=== PATIENT | female | born 1990 | race Caucasian/White ===

== ENCOUNTER 2020-04-07 13:55 | Outpatient (REF) | payer OTHER, SELFPAY | END 2020-04-07 13:56 | disposition home or self-care (01) | LOC: HO.LAB 13:55 | PROVIDERS: Visit Provider Internal Medicine | DX: Z20.828 Contact with and (suspected) exposure to other viral communicable diseases (principal) | CPT/HCPCS: C9803; U0003 ==

== ENCOUNTER 2022-01-15 11:07 | Outpatient (REF) | payer OTHER, SELFPAY ==
--- NOTE | ~2022-01-15 | XR_ITS ---
EXAMINATION: XR CHEST CLINICAL INFORMATION: Morbid obesity COMPARISON: None TECHNIQUE: 2 views of the chest were obtained. FINDINGS: No significant abnormality is noted involving the heart, lungs, mediastinum, bony thorax or soft tissues. XR/XR chest 2V IMPRESSION: No acute disease.
--- NOTE | 2022-01-15 11:14 | ECG_ITS ---
Test Reason : E66.01 Blood Pressure : / mmHG Vent. Rate : 095 BPM Atrial Rate : 095 BPM P-R Int : 142 ms QRS Dur : 078 ms QT Int : 348 ms P-R-T Axes : 063 017 032 degrees QTc Int : 437 ms Normal sinus rhythm with sinus arrhythmia Normal ECG No previous ECGs available Referred By: Jayla Snyder Electronically Signed By:ENRIQUE PHILLIPS
[2022-01-15 12:16] LABS: Basophils Percent Auto 0.5 % (0-2); Eosinophils Absolute Auto 0.1 X10*3/uL (0.0-0.4); Eosinophils Percent Auto 1.4 % (0-4); Hematocrit 40.5 % (37.0-47.0); Hemoglobin 13.6 g/dl (12.0-16.0); Imm Gran Abs Auto 0.04 X10*3/uL (0.00-0.03); Imm Gran Pct Auto 0.5 % (0.0-0.4); Lymphocytes Absolute Auto 2.4 X10*3/uL (1.2-4.9); Lymphocytes Percent Auto 27.6 % (20-40); MANUAL DIFF FLAG NO; Mean Corpuscular HGB Conc 33.6 g/dl (31.0-35.0); Mean Corpuscular Hemoglobin 30.5 pg (27.0-33.0); Mean Corpuscular Volume 90.8 fL (80.0-98.0); Mean Platelet Volume 10.4 fL (9.4-12.3); Monocytes Absolute Auto 0.7 X10*3/uL (0.1-1.2); Monocytes Percent Auto 7.5 % (2-11); Neutrophils Absolute Auto 5.5 x10*3/uL (2.0-8.3); Neutrophils Percent Auto 62.5 % (45-73); Platelet Count 229 X10*3/uL (160-400); Red Blood Count 4.46 X10*6/uL (4.20-5.50); Red Cell Distribution Width 12.6 % (11.0-16.0); White Blood Count 8.7 X10*3/uL (4.8-10.8)
[2022-01-15 12:24] LABS: Estimated Average Glucose 105 mg/dL; Hemoglobin A1c % 5.3 %
[2022-01-15 13:00] LABS: Alanine Aminotransferase 20 U/L (0-31); Albumin Level 4.1 g/dL (3.5-5.0); Alkaline Phosphatase 61 U/L (39-117); Anion Gap 15 (12-20); Aspartate Amino Transferase 12 U/L (5-31); Bilirubin Total 0.6 mg/dL (0.0-1.0); Blood Urea Nitrogen 14 mg/dL (9-16); C Reactive Protein 0.31 mg/dL (< or = 0.50); Calcium 9.3 mg/dL (8.4-10.2); Carbon Dioxide 24 mmol/L (22-29); Chloride 104 mmol/L (96-108); Cholesterol 187 mg/dL; Estimated Glomerular Filt Rate > 60; Glucose Random 104 mg/dL (60-115); HDL Cholesterol 44 mg/dL; Iron 150 mcg/dL (30-160); LDL Cholesterol Calculated 88 mg/dl; Percent Iron Saturation 41 % (15-50); Potassium 4.1 mmol/L (3.3-5.1); Sodium 139 mmol/L (135-145); Total Iron Binding Capacity 368 mcg/dL (228-428); Total Protein 6.5 g/dL (6.5-8.0); Triglycerides 275 mg/dL; Unsaturated Iron Binding 218 ug/dL
[2022-01-15 13:09] LABS: Ferritin 98 ng/mL (10-122); Insulin 16 uU/mL (2-29); TSH reflex Free T4 2.31 uIU/mL (0.32-4.0); Vitamin D 25-OH Total 13.1 ng/mL (>30)
[2022-01-15 13:44] LABS: Folate 7.1 ng/mL (> or = 4.0); Vitamin B12 207 pg/mL (200-900)
[2022-01-16 11:46] LABS: Calcium (PTHI) 9.1 mg/dL (8.6-10.2); PTHI 61 pg/mL (16-77)
[2022-01-18 16:17] LABS: Zinc 63 mcg/dL (60-130)
== END 2022-01-15 11:08 | disposition home or self-care (01) ==
LOC: HO.LAB 11:07
PROVIDERS: Visit Provider Physician Assistant
DX: Z01.818 Encounter for other preprocedural examination (principal); E66.01 Morbid (severe) obesity due to excess calories
CPT/HCPCS: 36415; 71046; 80053; 80061; 82306; 82607; 82728; 82746; 83036; 83525; 83540; 83970; 84425; 84443; 84590; 84630; 85025; 86140; 93005

== ENCOUNTER → 2022-01-16 10:30 | Outpatient (BNVA) | payer OTHER, SELFPAY | PROVIDERS: Referring Provider Physician Assistant; Visit Provider Counselor Mental Health | DX: E66.01 Morbid (severe) obesity due to excess calories (principal); Z68.43 Body mass index [BMI] 50.0-59.9, adult; F43.23 Adjustment disorder with mixed anxiety and depressed mood | CPT/HCPCS: 90791; 99211; 99212 ==

== ENCOUNTER 2022-01-16 17:54 | Outpatient (REF) | payer OTHER, SELFPAY ==
[2022-01-17 15:58] LABS: H Pylori Breath Test Negative (Negative)
== END 2022-01-16 17:55 | disposition home or self-care (01) ==
LOC: HO.LNP 17:54
PROVIDERS: Visit Provider Physician Assistant
DX: Z01.818 Encounter for other preprocedural examination (principal); E66.01 Morbid (severe) obesity due to excess calories
CPT/HCPCS: 83013

== ENCOUNTER → 2022-01-17 09:24 | Outpatient (BNVA) | payer OTHER, SELFPAY | PROVIDERS: Referring Provider Physician Assistant; Visit Provider Dietitian, Registered | DX: E66.01 Morbid (severe) obesity due to excess calories (principal); Z71.3 Dietary counseling and surveillance | CPT/HCPCS: 97802 ==

== ENCOUNTER 2022-12-09 13:24 | Outpatient (AMB) | payer OTHER, SELFPAY ==
--- NOTE | 2022-12-09 13:27 | A.OFFVIS_ITS ---
Intake VS Expanded 12/09/22 13:50 Height 5 ft 3 in Weight 303 lb BMI 53.7 BP 139/98 H Blood Pressure Location Rt brachial Blood Pressure Position Sitting Pulse 81 Pulse Source Pulse Oximeter Temp 97.7 F Temperature Source Tympanic Pulse Oximetry 96 Oxygen Delivery Method Room Air Body Fat 150.8 Body Fat Percentage 49.8 Free Fat Mass 152.2 Muscle Mass 144.4 Visceral Mass 17.0 Water Mass 109.2 BMR 2,217 Intake Visit Reasons: (OV) Gastric Balloon Allergies No Known Allergies [No Known Allergies*] Allergy (Verified 01/16/22 15:48) HPI HPI Comments History of Present Illness Details This is a 31 year old woman who is here to start SWL program with SWL classes. Her goal is not to be overweight anymore. She reports first being concerned about her weight 4 years ago and then gave . . She has tried multiple methods of weight loss including multiple diets without permanent results. She lives with [facility] and 2 children ages 10 and 2. She works 5 days per week at home. She wakes at: 6:30 am bed at 1-2 am. Gets into bed a few hours earlier and on her phone or watches television Breakfast: 8:30 am - frozen breakfast sandwich or parfait yogurt. Coffee with black with 4 splenda. Lunch: 1:30 pm - brings leftovers or frozen dinner. water Dinner: 7- 8pm - 2 pork chops, rice and vegetable, 1 plate. water After dinner: string cheese, popsicle a few chips - 1 snack Other snacks: on weekends will snack, salty more than sweet. Liquids: no soda, some fruit juice no sweetened drinks. Alcohol intake: 3d/ week, drinks rum with soda or beer up to 5 drinks. tobacco: 2 cigarettes per day. marijuana: none Exercise: none, no gym membership, treadmill at home. Last mammogram: never, too young Last pap smear: yes, next one soon control method: Mirena IUD VIVIENNE:3 ESS:9 GERD: 4: QOL:91 The patient had entered the surgical weight loss program a year ago, dropped out due to conflicts with family and work. She originally contacted the office requesting Orbera balloon, but given her ongoing smoking and research, she realized that this was not advisable and is interested in nicotine cessation. She is continuing to use Mirena for control and is not interested in having more children at this point. Past surgical history includes . She notes that she is at the heaviest of her adult life at 303 lbs/BMI 53.7. The patient understands that she will need to repeat previously done labs and studies and has requested a virtual/telehealth whenever possible. [facility] Medical History Encounter for insertion of mirena IUD Surgical History H/O section Social History Alcohol intake: current Alcohol intake frequency: a few times a week Tobacco use type: Cigarette Cigarettes Per Day: 2 Review of Systems Const All systems reviewed & are unremarkable except as noted in HPI and below Reports as per HPI Physical Exam Vital Signs: Last Vital Signs Temp 97.7 F 12/09/22 13:50 Pulse 81 12/09/22 13:50 BP 139/98 H 12/09/22 13:50 Pulse Ox 96 12/09/22 13:50 Oxygen Delivery Method Room Air 12/09/22 13:50 BMI result Body Mass Index 53.7 Results Reviewed Results Reviewed: See orders Assessment & Plan Assessment & Plan (1) Morbid obesity: Code(s): E66.01 - Morbid (severe) obesity due to excess calories (2) Asthma: Code(s): J45.909 - Unspecified asthma, uncomplicated (3) Adjustment reaction with anxiety and depression: Code(s): F43.23 - Adjustment disorder with mixed anxiety and depressed mood Plan Using a teaching electric welder helper, I reviewed options including Orbera gastric balloon, laparoscopic sleeve gastrectomy and gastric bypass. The option of a 2nd opinion was also discussed but declined. The option of medical management was reviewed but declined. The patient is interested in a laparoscopic sleeve gastrectomy, possible hiatal hernia repair, possible ventral hernia repair and intraoperative endoscopy. The inherent need for appropriate diet, increased activity/exercise to optimize surgical weight loss and need for nicotine cessation was reviewed and apparently understood. I reviewed the inherent risks of this procedure which include, but are not limited to: Bleeding that could require another operation or blood transfusion; the inherent risks of transfusion reaction infectious disease from blood transfusions; the risk of staple line leaks that could cause sepsis, multi- system organ failure and ; the risk of mesenteric or deep vein thrombosis of the lower extremities that could cause a fatal pulmonary embolism was reviewed; the risk of GERD that could require conversion to gastric bypass was discussed; the risk of recurrent hiatal hernia, especially in the setting of weight regain was reviewed. The risk of weight regain if maladaptive eating and sedentary behavior continue was discussed. The importance of proper diet and increased activity to augment surgical weight loss and the fact that no operation would result in weight loss of poor dietary decisions and sedentary behavior are resumed were discussed at length and apparently understood. The patient had the option of having a high school mathematics teacher present and declined this option. Handouts on lean protein and diet were provided. The patient has requested a follow-up in 1 month which can be a tele visit, see orders. Will arrange an intake visit with Ramsey Blair PA-C regarding diet and exercise. 1. Adequate sleep of 7-8 hours per night discussed 2. Healthy meal plan - stop skipping meals and stop all sweetened drinks All meals/MR's need to take 20 minutes to complete ? ? 8 am - 30 gram shake ? ? 11 am - 30 gram shake ? ? 3:30 pm- bar or yogurt ?? 7pm- dinner of 6 oz lean protein, 8 oz vegetable, 1 serving fruit Exercise - Cardio 4 d week = treadmill at speed 3.0, incline 2-5 - to burn 250 calories 3 d/ wk - Walk at home - 30 minutes Can use [employer] to track calories burned or phone diana. We discussed that patient will need to stop smoking cigarettes now and will need to start decreasing her alcohol intake to 1 drink 3d/ week, stop sweetened mixers. The importance of avoiding and breast feeding for at least 18 months after bariatric surgery was discussed in the information session and was reinforced today.? ? Pt will use body composition analyzer (recommended list given to patient) and weight herself weekly Orders: Orders Vitamin B12 and Folate Today E66.01 - Morbid (severe) obesity due to excess calories, F43.23 - Adjustment disorder with mixed anxiety and depressed mood, J45.909 - Unspecified asthma, uncomplicated Comprehensive Met. Panel Today E66.01 - Morbid (severe) obesity due to excess calories, F43.23 - Adjustment disorder with mixed anxiety and depressed mood, J45.909 - Unspecified asthma, uncomplicated C Reactive Protein Today E66.01 - Morbid (severe) obesity due to excess calories, F43.23 - Adjustment disorder with mixed anxiety and depressed mood, J45.909 - Unspecified asthma, uncomplicated Ferritin Today E66.01 - Morbid (severe) obesity due to excess calories, F43.23 - Adjustment disorder with mixed anxiety and depressed mood, J45.909 - Unspecified asthma, uncomplicated Hemoglobin A1c Today E66.01 - Morbid (severe) obesity due to excess calories, F43.23 - Adjustment disorder with mixed anxiety and depressed mood, J45.909 - Unspecified asthma, uncomplicated Insulin Today E66.01 - Morbid (severe) obesity due to excess calories, F43.23 - Adjustment disorder with mixed anxiety and depressed mood, J45.909 - Unspecified asthma, uncomplicated IRON PROFILE Today E66.01 - Morbid (severe) obesity due to excess calories, F43.23 - Adjustment disorder with mixed anxiety and depressed mood, J45.909 - Unspecified asthma, uncomplicated Lipid Panel Today E66.01 - Morbid (severe) obesity due to excess calories, F43.23 - Adjustment disorder with mixed anxiety and depressed mood, J45.909 - Unspecified asthma, uncomplicated PTHI Today E66.01 - Morbid (severe) obesity due to excess calories, F43.23 - Adjustment disorder with mixed anxiety and depressed mood, J45.909 - Unspecified asthma, uncomplicated TSH reflex Free T4 Today E66.01 - Morbid (severe) obesity due to excess calories, F43.23 - Adjustment disorder with mixed anxiety and depressed mood, J45.909 - Unspecified asthma, uncomplicated Vitamin A Today E66.01 - Morbid (severe) obesity due to excess calories, F43.23 - Adjustment disorder with mixed anxiety and depressed mood, J45.909 - Unspecified asthma, uncomplicated Vitamin B1 Today E66.01 - Morbid (severe) obesity due to excess calories, F43.23 - Adjustment disorder with mixed anxiety and depressed mood, J45.909 - Unspe cified asthma, uncomplicated Vitamin D 25-OH Total Today E66.01 - Morbid (severe) obesity due to excess calories, F43.23 - Adjustment disorder with mixed anxiety and depressed mood, J45.909 - Unspecified asthma, uncomplicated Zinc Today E66.01 - Morbid (severe) obesity due to excess calories, F43.23 - Adjustment disorder with mixed anxiety and depressed mood, J45.909 - Unspecified asthma, uncomplicated ECG 12 lead EKG Today E66.01 - Morbid (severe) obesity due to excess calories, F43.23 - Adjustment disorder with mixed anxiety and depressed mood, J45.909 - Unspecified asthma, uncomplicated FL upper GI w air Today E66.01 - Morbid (severe) obesity due to excess calories, F43.23 - Adjustment disorder with mixed anxiety and depressed mood, J45.909 - Unspecified asthma, uncomplicated Complete Blood Count Auto Diff Today E66.01 - Morbid (severe) obesity due to excess calories, F43.23 - Adjustment disorder with mixed anxiety and depressed mood, J45.909 - Unspecified asthma, uncomplicated H Pylori Breath Test Today E66.01 - Morbid (severe) obesity due to excess calories, F43.23 - Adjustment disorder with mixed anxiety and depressed mood, J45.909 - Unspecified asthma, uncomplicated US abdomen comp w elastography Today E66.01 - Morbid (severe) obesity due to excess calories, F43.23 - Adjustment disorder with mixed anxiety and depressed mood, J45.909 - Unspecified asthma, uncomplicated XR chest 2V Today E66.01 - Morbid (severe) obesity due to excess calories, F43.23 - Adjustment disorder with mixed anxiety and depressed mood, J45.909 - Unspecified asthma, uncomplicated Referrals Behavioral Health Referral E66.01 - Morbid (severe) obesity due to excess calories, F43.23 - Adjustment disorder with mixed anxiety and depressed mood, J45.909 - Unspecified asthma, uncomplicated Nutrition/Dietitian Referral E66.01 - Morbid (severe) obesity due to excess calories, F43.23 - Adjustment disorder with mixed anxiety and depressed mood, J45.909 - Unspecified asthma, uncomplicated Coding Level of Care Code Est Pt Level 4 (72306) Diagnoses Morbid obesity E66.01 Asthma J45.909 Adjustment reaction with anxiety and depression F43.23
[2022-12-09 13:50] VITALS: BP 139/98; PULSE 81; TEMP 36.5; O2SAT 96; BMI 53.7
== END 2022-12-09 14:30 | disposition home or self-care (01) ==
PROVIDERS: Visit Provider Surgery
DX: E66.01 Morbid (severe) obesity due to excess calories (principal); Z68.43 Body mass index [BMI] 50.0-59.9, adult; J45.909 Unspecified asthma, uncomplicated; F43.23 Adjustment disorder with mixed anxiety and depressed mood
CPT/HCPCS: 99214

== ENCOUNTER → 2022-12-09 13:24 | Outpatient (BNVA) | payer OTHER, SELFPAY | PROVIDERS: Visit Provider Surgery | DX: E66.01 Morbid (severe) obesity due to excess calories (principal); J45.909 Unspecified asthma, uncomplicated; F43.23 Adjustment disorder with mixed anxiety and depressed mood; Z68.43 Body mass index [BMI] 50.0-59.9, adult | CPT/HCPCS: 99212 ==

== ENCOUNTER 2022-12-23 14:22 | Outpatient (AMB) | payer OTHER, SELFPAY ==
--- NOTE | 2022-12-23 14:12 | A.OFFVIS_ITS ---
Intake Intake Visit Reasons: VIDEO Initial Nutrition Allergies No Known Allergies [No Known Allergies*] Allergy (Verified 01/16/22 15:48) HPI Nutrition Presentation Details Left the program in 2021 due to not feeling heard and felt the communication was poor. Reason for consult elevated BMI Diet Assmnt Details Pt reports she doesn't really like her nutrition plan. 8am Premier protein premade ([employer] version) 11am same shake 2pm - pt feels hungry here and feels that she needs something savory added. 3pm mozambican yogurt Exercise: 4x per week for 30 minutes treadmill. has a very sedentary job at home. SWL online classes: none, she took the first 4 last year During the time period she was not in the program, did not go back to old habits. Dietary counseling reduction Diagnosis Nutrition problem #1 overweight/obesity As related to (etiology) #1 excess energy intake and physical inactivity As evidenced by (sign/symptom) #1 high BMI Monitoring/Goals Nutrition problem monitoring total energy intake, level of knowledge/skill, total PRO intake, total CHO intake and weight Outcome progress progressing Learning/Education Readiness to learn good Stages of change action Educational materials provided Yes Most Recent Diabetes Results: Cholesterol 187 mg/dL 01/15/22 HDL Cholesterol 44 mg/dL 01/15/22 Triglycerides 275 mg/dL 01/15/22 Creatinine 0.73 mg/dL (0.5-1.4) 01/15/22 Blood Urea Nitrogen 14 mg/dL (9-16) 01/15/22 Sodium 139 mmol/L (135-145) 01/15/22 Potassium 4.1 mmol/L (3.3-5.1) 01/15/22 Chloride 104 mmol/L (96-108) 01/15/22 Carbon Dioxide 24 mmol/L (22-29) 01/15/22 Calcium 9.3 mg/dL (8.4-10.2) 01/15/22 AST 12 U/L (5-31) 01/15/22 ALT 20 U/L (0-31) 01/15/22 Total Protein 6.5 g/dL (6.5-8.0) 01/15/22 Albumin 4.1 g/dL (3.5-5.0) 01/15/22 [facility] Medical History Encounter for insertion of mirena IUD Surgical History H/O section Social History Alcohol intake: current Alcohol intake frequency: a few times a week Tobacco use type: Cigarette Cigarettes Per Day: 2 Assessment & Plan Assessment & Plan (1) Morbid obesity: Code(s): E66.01 - Morbid (severe) obesity due to excess calories Patient Instructions: Gave snack option if needed. otherwise, she is content enough to continue her nutrition plan as is. recommended going for a walk on her 30 minute lunch break as well since she is sitting all day. also sent information to log into online classes which she will complete by next RD appt 01/28 1:30pm Telehealth Telehealth Location of provider rendering services: practice address Location of patient: address on file Patient Identification confirmed using: Name, : Yes Telehealth method: video Patient verbally consented to treatment: Yes Patient verbally consented to billing insurance company: Yes Patient informed of any privacy concerns related to visit: Yes Minutes spent on Phone/Video with Pt.: 25 Coding Level of Care Code Nutr Indiv Subseq ([id number]) Diagnoses Morbid obesity E66.01 Time Spent (min) 25
== END 2022-12-23 14:26 | disposition home or self-care (01) ==
LOC: HO.HBS 14:22
PROVIDERS: Visit Provider Dietitian, Registered
DX: E66.01 Morbid (severe) obesity due to excess calories (principal)

== ENCOUNTER → 2022-12-23 14:22 | Outpatient (BNVA) | payer OTHER, SELFPAY | PROVIDERS: Visit Provider Dietitian, Registered | DX: E66.01 Morbid (severe) obesity due to excess calories (principal); Z71.3 Dietary counseling and surveillance | CPT/HCPCS: 97803 ==

== ENCOUNTER 2022-12-25 15:36 | Outpatient (REF) | payer OTHER, SELFPAY ==
[2022-12-27 12:56] LABS: H Pylori Breath Test Negative (Negative)
== END 2022-12-25 15:37 | disposition home or self-care (01) ==
LOC: HO.LNP 15:36
PROVIDERS: Visit Provider Physician Assistant Surgical
DX: Z01.818 Encounter for other preprocedural examination (principal)
CPT/HCPCS: 83013

== ENCOUNTER → 2022-12-25 15:56 | Outpatient (BNVA) | payer OTHER, SELFPAY | PROVIDERS: Visit Provider Physician Assistant Surgical | DX: Z11.0 Encounter for screening for intestinal infectious diseases (principal) | CPT/HCPCS: 99211 ==

== ENCOUNTER 2023-01-02 13:19 | Outpatient (AMB) | payer OTHER, SELFPAY ==
--- NOTE | 2023-01-02 13:11 | MHC.WMTHER ---
Intake Intake Visit Reasons: VIDEO BH Intake Allergies No Known Allergies [No Known Allergies*] Allergy (Verified 01/16/22 15:48) [facility] Medical History Encounter for insertion of mirena IUD Surgical History H/O section Social History Alcohol intake: current Alcohol intake frequency: a few times a week Tobacco use type: Cigarette Cigarettes Per Day: 2 Behavioral Health Assessment Weight Management Therapy Therapy Notes Details Pt is looking to have weight loss surgery to help loose weight, improve her health and quality of life. She reported that she wants to be healthy for her children. Pt denied a history of any drug or alcohol addiction, inpatient psychiatric admissions or other levels of care. Pt reported being in therapy as a teenager for support. Presenting Concerns Referral Source provider Reason for referral weight loss surgery evaluation Precipitating Event obesity Living Situation Current Living Situation Rent At risk of losing current housing? No Satisfied with current living situation? Yes Comments Pt lives with her fiance, and two children. Children are 2 and 10. Food/Weight/Diet Expectations of change weight loss History/Relationship with food Pt stated that she doesn't eat excessively but will eat what and when she wants. She would often skip breakfast and then eat large portions. Pt stated that she would eat rice, pork, pasta, vegetables, fried foods, take out, fast food, occasional soda. History/Relationship with weight Pt is at her heaviest weight. She was 150lbs at her lowest. After she had her two year old daughter, she started to gain weight over the course of two years. History/Relationship with dieting various fad diets. Pt was able to loose 60lbs in the past by walking 1.5 hours everyday. WMP last year 2021. Since then she has been much more mindful of what she is eating and from where. Binge Eating Do you frequently eat large amounts of food in short periods of time, not feeling physically hungry? No Do you feel out of control when you eat a large amount of food in a short period of time? No Do you eat large amounts of food rapidly and typically alone? Yes Night Eating Do you wake up at least once during the night to eat? No If you wake up in the night, do you find that it is necessary to eat something in order to fall back asleep? No Do you have little or no appetite in the morning and feel very hungry in the evening, often overeating between dinner and when you go to bed? Yes Social History Family history and relationship Pt was born in [place], and raised in [place] by both biological parents who were but spent time equally between the two, and also two brothers. Pt lives with her amadeo? and has two children ages 10, and 2. Her fianc? is the father of her two year old and help parent her 10 year old son. They have been together for 7 years. Parental/Familial computer hardware designer obligations children Developmental history and status no issues Social support fianc?, mother Community support unknown Scientologist/Spirituality none Cultural/Ethnic information Legal Involvement and History Current or historical involvement with the legal system? none Education Highest grade completed high school diploma. Preferred learning style Auditory, Verbal, Written, Learn by doing and Visual Currently enrolled in educational program? No Interested in further educational program? 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 Employment Employment Status [employer] Wants help to find employment? No Meaningful activities walking, spending time with family, go to the park, play with her children. Financial Situation Describe current financial situation Occasional struggle Financial assistance? None Service Service? No Mental Health and Addiction Treatment Current/Past substance abuse? No Current/Past addictive behavior concerns? No Medical and Physical Health Summary Physical exam in the last year? Yes Pain Screening Current pain? No Pain in the last few months? No Medications Is the patient compliant with medications? Not applicable Does the patient use complimentary health approaches? No Trauma/Abuse History History of trauma? Yes Assessment & Plan Assessment & Plan (1) Adjustment reaction with anxiety and depression: Code(s): F43.23 - Adjustment disorder with mixed anxiety and depressed mood (2) Morbid obesity: Code(s): E66.01 - Morbid (severe) obesity due to excess calories Plan Pt is cleared for surgery. She does not present with or report any major barriers in her mental health. She understands all of the support and therapy services the program offers and than she can utilize these as needed. Telehealth Telehealth Location of provider rendering services: other Patient Identification confirmed using: Name, : Yes Telehealth method: video Patient verbally consented to treatment: Yes Patient verbally consented to billing insurance company: Yes Patient informed of any privacy concerns related to visit: Yes Minutes spent on Phone/Video with Pt.: 30 Coding Level of Care Code Tele Psy Diag Eval (32217) Diagnoses Adjustment reaction with anxiety and depression F43.23 Morbid obesity E66.01 Time Spent (min) 30
== END 2023-01-02 13:24 | disposition home or self-care (01) ==
LOC: HO.HBST 13:19
PROVIDERS: Visit Provider Counselor Mental Health
DX: F43.23 Adjustment disorder with mixed anxiety and depressed mood (principal); E66.01 Morbid (severe) obesity due to excess calories; Z68.43 Body mass index [BMI] 50.0-59.9, adult
CPT/HCPCS: 90791

== ENCOUNTER → 2023-01-02 13:19 | Outpatient (BNVA) | payer OTHER, SELFPAY | PROVIDERS: Visit Provider Counselor Mental Health ==

== ENCOUNTER 2023-01-13 12:56 | Outpatient (AMB) | payer OTHER, SELFPAY ==
--- NOTE | 2023-01-13 12:57 | MHC.OFFVISWM ---
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 Allergies No Known Allergies [No Known Allergies*] Allergy (Verified 01/13/23 12:59) Medication List - Last Reconciled 01/13/23 by Candelario Stark MD No Known Home Meds HPI HPI Comments History of Present Illness Details Telehealth Location of provider rendering services: practice address Location of patient: address on file Patient Identification confirmed using: Name, : Yes Telehealth method: video Patient verbally consented to treatment: Yes Patient verbally consented to billing insurance company: Yes Patient informed of any privacy concerns related to visit: Yes This is a 31 year old woman who is here to start SWL program with SWL classes. Her goal is not to be overweight anymore. She reports first being concerned about her weight 4 years ago and then gave . . She has tried multiple methods of weight loss including multiple diets without permanent results. She lives with [facility] and 2 children ages 10 and 2. She works 5 days per week at home. The patient has quit nicotine completely 4 days ago on is congratulated; especially in of 8 lb of weight loss. She purchased the body composition scale and reports a weight of 295 lb which is an 8 lb weight loss from last visit. She is currently using equate, pre mix 30 g protein shakes control method: Mirena IUD VIVIENNE:3 ESS:9 GERD: 4: QOL:91 The patient had entered the surgical weight loss program a year ago, dropped out due to conflicts with family and work. She originally contacted the office requesting Orbera balloon, but given her ongoing smoking and research, she realized that this was not advisable and is interested in nicotine cessation. She is continuing to use Mirena for control and is not interested in having more children at this point. Past surgical history includes . She notes that she is at the heaviest of her adult life at 303 lbs/BMI 53.7. She reports a weight today 01/13/23 of 295 lbs representing an 8 lb weight loss since she 1st re-enter the surgical weight loss program. The patient understands that she will need to repeat previously done labs and studies and has requested a virtual/telehealth whenever possible. Meal plan: Equate premixed shakes, 30 g for breakfast Noon: Equate 30 g protein shake 14:00 snack: Serving of low-fat cottage cheese or Cypriot yogurt Dinner: 6 oz of protein with 6 oz of green vegetables Exercise: She is currently using a home treadmill 3-4 days a week for 30 minutes. She has not trended energy expenditure (kcal/session) yet but has been advised to start. [facility] Medical History Encounter for insertion of mirena IUD Surgical History H/O section Social History Alcohol intake: current Alcohol intake frequency: a few times a week Tobacco use type: Cigarette Cigarettes Per Day: 2 Review of Systems Const All systems reviewed & are unremarkable except as noted in HPI and below Reports as per HPI Physical Exam Vital Signs: BMI result Body Mass Index 52.3 On exam, by televisit, the patient is nontoxic and in good spirits Results Reviewed Results Reviewed: Need to obtain fasting labs and diagnostic imaging was discussed with the patient. Assessment & Plan Assessment & Plan (1) Morbid obesity: Code(s): E66.01 - Morbid (severe) obesity due to excess calories (2) Asthma: Code(s): J45.909 - Unspecified asthma, uncomplicated (3) Adjustment reaction with anxiety and depression: Code(s): F43.23 - Adjustment disorder with mixed anxiety and depressed mood (4) Nicotine use: Code(s): Z72.0 - Tobacco use Plan The patient is congratulated on the healthy lifestyle changes including nicotine cessation and weight loss. I do not want to make any changes regarding the meal plan at this point, however the patient is advised about the importance of trending energy expenditure per exercise session and will start to monitor with a goal of 350 kcal per session, ideally at least 4 times a week. A gradual transition to celebrate protein shakes was discussed with the patient. She has reported good tolerance from the equate brand. Goal weight of 270 lb which would represent a 30 lb weight loss from her intake weight was discussed. The importance of healthy diet and increased activity/exercise to supplement surgical weight loss was discussed with the patient and apparently understood. She will reach out with any questions in the meantime, otherwise we will see her either in the office if it coincides with her fasting labs or diagnostic imaging or another tele visit in 3 weeks. Telehealth Telehealth Location of provider rendering services: practice address Location of patient: address on file Telehealth method: voice only Patient verbally consented to treatment: Yes Patient verbally consented to billing insurance company: Yes Patient informed of any privacy concerns related to visit: Yes Coding Level of Care Code Tele Est Pt Level 4 (54113) Diagnoses Morbid obesity E66.01 Asthma J45.909 Adjustment reaction with anxiety and depression F43.23 Nicotine use Z72.0
[2023-01-13 12:58] VITALS: BMI 52.3
== END 2023-01-13 14:06 | disposition home or self-care (01) ==
LOC: HO.HBS 12:56
PROVIDERS: Visit Provider Surgery
DX: E66.01 Morbid (severe) obesity due to excess calories (principal); Z68.43 Body mass index [BMI] 50.0-59.9, adult; J45.909 Unspecified asthma, uncomplicated; F43.23 Adjustment disorder with mixed anxiety and depressed mood; Z72.0 Tobacco use
CPT/HCPCS: 99214

== ENCOUNTER → 2023-01-13 12:56 | Outpatient (BNVA) | payer OTHER, SELFPAY | PROVIDERS: Visit Provider Surgery ==

== ENCOUNTER → 2023-03-07 13:05 | Outpatient (BNVA) | payer OTHER, SELFPAY | PROVIDERS: Visit Provider Dietitian, Registered | DX: E66.9 Obesity, unspecified (principal) | CPT/HCPCS: 97803 ==

== ENCOUNTER 2023-03-12 14:03 | Outpatient (REF) | payer OTHER, SELFPAY ==
--- NOTE | ~2023-03-12 | XR_ITS ---
EXAMINATION: XR CHEST CLINICAL INFORMATION: Morbid obesity COMPARISON: TECHNIQUE: 2 views of the chest were obtained. FINDINGS: Unchanged mild elevation right hemidiaphragm. No significant abnormality is noted involving the heart, lungs, mediastinum, bony thorax or soft tissues. XR/XR chest 2V IMPRESSION: No acute cardiopulmonary disease or interval change.
--- NOTE | 2023-03-12 14:17 | ECG_ITS ---
Test Reason : MORBID OBESITY Blood Pressure : / mmHG Vent. Rate : 077 BPM Atrial Rate : 077 BPM P-R Int : 148 ms QRS Dur : 082 ms QT Int : 382 ms P-R-T Axes : 050 020 018 degrees QTc Int : 432 ms Normal sinus rhythm with sinus arrhythmia Normal ECG When compared with ECG of 15-JAN-2022 11:32, No significant change was found Referred By: Candelario Stark Electronically Signed By:DIONISIO GATES MD
[2023-03-12 14:19] LABS: MANUAL DIFF FLAG NO
[2023-03-12 14:36] LABS: Basophils Absolute Auto 0.1 X10*3/uL (0.0-0.2); Basophils Percent Auto 0.5 % (0-2); Eosinophils Absolute Auto 0.2 X10*3/uL (0.0-0.4); Eosinophils Percent Auto 1.6 % (0-4); Hematocrit 41.8 % (37.0-47.0); Imm Gran Abs Auto 0.04 X10*3/uL (0.00-0.03); Imm Gran Pct Auto 0.4 % (0.0-0.4); Lymphocytes Absolute Auto 2.3 X10*3/uL (1.2-4.9); Lymphocytes Percent Auto 24.5 % (20-40); Mean Corpuscular HGB Conc 33.5 g/dl (31.0-35.0); Mean Corpuscular Hemoglobin 31.3 pg (27.0-33.0); Mean Corpuscular Volume 93.3 fL (80.0-98.0); Mean Platelet Volume 10.1 fL (9.4-12.3); Monocytes Absolute Auto 0.7 X10*3/uL (0.1-1.2); Monocytes Percent Auto 7.8 % (2-11); Neutrophils Absolute Auto 6.1 x10*3/uL (2.0-8.3); Neutrophils Percent Auto 65.2 % (45-73); Platelet Count 254 X10*3/uL (160-400); Red Blood Count 4.48 X10*6/uL (4.20-5.50); Red Cell Distribution Width 12.5 % (11.0-16.0); White Blood Count 9.4 X10*3/uL (4.8-10.8)
[2023-03-12 15:22] LABS: Alanine Aminotransferase 26 U/L (0-31); Albumin Level 4.3 g/dL (3.5-5.0); Alkaline Phosphatase 57 U/L (39-117); Anion Gap 12 (12-20); Aspartate Amino Transferase 16 U/L (5-31); Bilirubin Total 0.6 mg/dL (0.0-1.0); Blood Urea Nitrogen 11 mg/dL (9-16); C Reactive Protein 0.48 mg/dL (< or = 0.50); Calcium 9.4 mg/dL (8.4-10.2); Carbon Dioxide 28 mmol/L (22-29); Chloride 105 mmol/L (96-108); Cholesterol 196 mg/dL (<200); Estimated Glomerular Filt Rate > 60; Glucose Random 105 mg/dL (60-115); HDL Cholesterol 47 mg/dL (>40); Iron 100 mcg/dL (30-160); LDL Cholesterol Calculated 110 mg/dL (<100); Percent Iron Saturation 31 % (15-50); Potassium 4.1 mmol/L (3.3-5.1); Sodium 141 mmol/L (135-145); Total Iron Binding Capacity 319 mcg/dL (228-428); Total Protein 7.2 g/dL (6.5-8.0); Triglycerides 199 mg/dL (<150); Unsaturated Iron Binding 219 ug/dL
[2023-03-12 15:26] LABS: Estimated Average Glucose 103 mg/dL; Hemoglobin A1c % 5.2 % (<6.0)
[2023-03-12 15:32] LABS: Ferritin 165 ng/mL (10-122); Insulin 16 uU/mL (2-29); Vitamin D 25-OH Total 21.3 ng/mL (>30)
[2023-03-12 15:42] LABS: Folate 6.3 ng/mL (> or = 4.0); Vitamin B12 244 pg/mL (200-900)
[2023-03-14 15:13] LABS: Calcium (PTHI) 9.1 mg/dL (8.6-10.2); PTHI 29 pg/mL (16-77)
[2023-03-17 15:08] LABS: Vitamin B1 7 nmol/L (8-30)
[2023-03-18 01:38] LABS: Zinc 71 mcg/dL (60-130)
[2023-03-18 04:58] LABS: Vitamin A 61 mcg/dL (38-98)
== END 2023-03-12 14:04 | disposition home or self-care (01) ==
LOC: HO.LAB 14:03
PROVIDERS: Visit Provider Surgery
DX: E66.01 Morbid (severe) obesity due to excess calories (principal); J45.909 Unspecified asthma, uncomplicated; F43.23 Adjustment disorder with mixed anxiety and depressed mood
CPT/HCPCS: 36415; 71046; 80053; 80061; 82306; 82607; 82728; 82746; 83036; 83525; 83540; 83970; 84425; 84443; 84590; 84630; 85025; 86140; 93005

== ENCOUNTER 2023-03-14 13:01 | Outpatient (AMB) | payer OTHER, SELFPAY ==
--- NOTE | 2023-03-14 13:01 | MHC.OFFVISWM ---
Intake Intake Visit Reasons: (tv)follow up SWL Allergies No Known Allergies [No Known Allergies*] Allergy (Verified 01/13/23 12:59) HPI HPI Comments History of Present Illness Details Telehealth Location of provider rendering services: practice address Location of patient: address on file Patient Identification confirmed using: Name, : Yes Telehealth method: video Patient verbally consented to treatment: Yes Patient verbally consented to billing insurance company: Yes Patient informed of any privacy concerns related to visit: Yes This is a 33 year old woman who is here to start SWL program with SWL classes. Her goal is not to be overweight anymore. She reports first being concerned about her weight 4 years ago and then gave . . She has tried multiple methods of weight loss including multiple diets without permanent results. She lives with jake and 2 children ages 10 and 2. She works 5 days per week at home. The patient has quit nicotine completely 4 days ago on is congratulated; especially in of 8 lb of weight loss. She purchased the body composition scale and reports a weight of 295 lb which is an 8 lb weight loss from last visit. She is currently using equate, pre mix 30 g protein shakes control method: Mirena IUD VIVIENNE:3 ESS:9 GERD: 4: QOL:91 The patient had entered the surgical weight loss program a year ago, dropped out due to conflicts with family and work. She originally contacted the office requesting Orbera balloon, but given her ongoing smoking and research, she realized that this was not advisable and is interested in nicotine cessation. She is continuing to use Mirena for control and is not interested in having more children at this point. Past surgical history includes . She notes that she is at the heaviest of her adult life at 303 lbs/BMI 53.7. She reports a weight today 03/14/23 of 288 lbs representing a 25 lb weight loss since she 1st re-enter the surgical weight loss program. Goal weight: 270 lb/30 lb weight loss Preop work-up SWL classes __ /[address] cleared Labs low Vit D H. pylori Neg EKG NSR CXR P Abd U/S P UGI P The patient understands that she will need to repeat previously done labs and studies and has requested a virtual/telehealth whenever possible. New Meal plan: Celebrate Rebuild 1.5 scoop in - oz unsweetened almond milk Noon: Celebrate Rebuild protein shake 1.5 scoop in 10-12 oz unsweetened almond milk 14:00 snack: Serving of low-fat cottage cheese or Hungarian yogurt or protein bar (pt couldn't remember name) Dinner: 12 forks of protein with 12 forks of green vegetables Exercise: She is currently using a home treadmill 2 days a week for 30 minutes for 300 kcal (takes 40') & 20' exercise videos 4 x/week [facility] Medical History Encounter for insertion of mirena IUD Surgical History H/O section Social History Alcohol intake: current Alcohol intake frequency: a few times a week Tobacco use type: Cigarette Cigarettes Per Day: 2 Physical Exam Televisit Results Reviewed Results Reviewed: Urine nicotine is pending. Please note that the patient quit smoking in early December Hb 14.0 N/N Fe WNL; Plts 254K, wbc 9.4 Vit D low--pt to take OTC supp MVI o/w pending TAGs 199, Chol 196 Hb A1C 5.2 TSH 2.20 BUN 11/Cr 0.80 H pylori neg CXR pending Abd U/S pending UGI pending Assessment & Plan Assessment & Plan (1) Nicotine use: Code(s): Z72.0 - Tobacco use (2) Morbid obesity: Code(s): E66.01 - Morbid (severe) obesity due to excess calories (3) Asthma: Code(s): J45.909 - Unspecified asthma, uncomplicated (4) Adjustment reaction with anxiety and depression: Code(s): F43.23 - Adjustment disorder with mixed anxiety and depressed mood Plan Patient is congratulated on her interval weight loss. Goal weight of 270 lb representing a 30 lb weight loss was discussed. Upcoming holidays and risks related to the empty calories of beverages including alcohol, carbohydrates and fats were discussed and the patient has a goal to try to optimize protein and vegetables at any meals. Patient is also encouraged to add an additional day of exercise on the treadmill or, 2, if she needs. See meal changes above since the patient is now using celebrate rebuild. Follow-up in 3 weeks via tele visit or office visit. Remaining diagnostic imaging and multivitamins are pending. Nicotine urine test has been ordered since the patient quit smoking back in December. She will continue to reach out with any questions and weekly weights. Time spent on the phone 18 minutes plus an additional 6 minutes reviewing labs and diagnostic imaging as well as calculating meal plan for a total of 26 minutes. Orders: Orders Nicotine and Metabolite Ur, Qt Today E66.01 - Morbid (severe) obesity due to excess calories, F43.23 - Adjustment disorder with mixed anxiety and depressed mood, J45.909 - Unspecified asthma, uncomplicated, Z72.0 - Tobacco use Telehealth Telehealth Location of provider rendering services: practice address Location of patient: address on file Patient Identification confirmed using: Name, : Yes Telehealth method: voice only Patient verbally consented to treatment: Yes Patient verbally consented to billing insurance company: Yes Patient informed of any privacy concerns related to visit: Yes Minutes spent on Phone/Video with Pt.: 18 Coding Level of Care Code Tele New Pt Level 4 (18932) Diagnoses Nicotine use Z72.0 Morbid obesity E66.01 Asthma J45.909 Adjustment reaction with anxiety and depression F43.23
== END 2023-03-14 13:45 | disposition home or self-care (01) ==
LOC: HO.HBS 13:01
PROVIDERS: Visit Provider Surgery
DX: E66.01 Morbid (severe) obesity due to excess calories (principal); J45.909 Unspecified asthma, uncomplicated; F43.23 Adjustment disorder with mixed anxiety and depressed mood; Z72.0 Tobacco use
CPT/HCPCS: 99214

== ENCOUNTER → 2023-03-14 13:01 | Outpatient (BNVA) | payer OTHER, SELFPAY | PROVIDERS: Visit Provider Surgery ==

== ENCOUNTER 2023-03-21 13:16 | Outpatient (REF) | payer OTHER, SELFPAY ==
--- NOTE | ~2023-03-21 | US_ITS ---
EXAMINATION: US COMPLETE ABDOMEN WITH LIVER ELASTOGRAPHY CLINICAL INFORMATION: Morbid obesity. COMPARISON: None available. TECHNIQUE: Real-time imaging of the abdominal viscera. Noninvasive ultrasound liver fibrosis assessment is performed using Manpreet ElastPQ point quantification shear wave elastography (2D-SWE) with a C5-2 MHz transducer. Multiple elastography samples are obtained. FINDINGS: PANCREAS: Normal. The visualized pancreatic head and body are normal in appearance. The remainder of the pancreas is obscured from visualization by the overlying bowel gas. ABDOMINAL AORTA: The proximal, middle, and distal aortic segments are normal in caliber. INFERIOR VENA CAVA: Visualized portions are normal. LIVER: The liver demonstrates normal size, contour and generally increased echogenicity. No focal lesion or intrahepatic biliary duct dilatation. The right lobe measures 17.9 cm in length. The left lobe measures 16.9 cm in length. Portal flow is towards the liver (hepatopetal). Shear wave liver elastography median stiffness is 1.4 m/s (reference: normal median stiffness is 1.3 m/s or less). IQR/median stiffness to assess sampling precision is 0.22 (reference: good quality data set is IQR/median stiffness of 0.15 or less). GALLBLADDER: Normal. The gallbladder is physiologically distended without evidence of stones, sludge, polyps, wall thickening or pericholecystic fluid. COMMON BILE DUCT: Normal in caliber measuring 0.3 cm in diameter. RIGHT KIDNEY: Normal. No hydronephrosis. No renal calculi or focal parenchymal lesions. The kidney measures 11.8 cm in maximum dimension. LEFT KIDNEY: Normal. No hydronephrosis. No renal calculi or focal parenchymal lesions. The kidney measures 12.9 cm in maximum dimension. SPLEEN: Normal. The spleen measures 13.5 cm in maximum dimension. FREE FLUID: None. US/US abdomen comp w elastography IMPRESSION: 1. There is hepatomegaly. 2. Liver elastography: Although measurements appear to rule out compensated advanced chronic liver disease, there is statistical variability of the sampling which decreases accuracy. 3. There is mild splenomegaly. REFERENCE: Society of Radiologists in Ultrasound Liver Stiffness Thresholds (2019): LIVER STIFFNESS THRESHOLDS: *Liver Stiffness equal or less than 1.3 m/s: High probability of being normal. *Liver Stiffness less than 1.7 m/s: In the absence of other known clinical signs, rules out compensated advanced chronic liver disease. *Liver Stiffness 1.7-2.1 m/s: Suggestive of compensated advanced chronic liver disease but need further test for confirmation. *Liver Stiffness over 2.1 m/s: Rules in compensated advanced chronic liver disease. *Liver Stiffness over 2.4 m/s: Suggestive of clinically significant portal hypertension. QUALITY OF DATA SET: *IQR/Median value equal or less than 0.15 implies a quality data set. *IQR/Median value over 0.15 implies a poor quality data set. SIGNIFICANT CHANGE FROM PRIOR EXAM: Significant change if liver stiffness measurement is 10% or greater from prior exam. OTHER CONSIDERATIONS: The stage of liver fibrosis may be overestimated in the setting of acute hepatitis, liver inflammation, elevated liver function tests, hepatic vascular congestion, obstructive cholestasis, non-fasting state, and infiltrative diseases such as amyloidosis and lymphoma. In some patients with NAFLD, the liver stiffness thresholds for compensated advanced chronic liver disease may be lower. In causes other than viral hepatitis and NAFLD, liver stiffness thresholds are not well established.
[2023-03-27 18:14] LABS: Cotinine, U 169 ng/mL; Nicotine, U 4 ng/mL
== END 2023-03-21 13:17 | disposition home or self-care (01) ==
LOC: HO.US 13:16
PROVIDERS: Visit Provider Surgery
DX: E66.01 Morbid (severe) obesity due to excess calories (principal); J45.909 Unspecified asthma, uncomplicated; F43.23 Adjustment disorder with mixed anxiety and depressed mood; Z72.0 Tobacco use
CPT/HCPCS: 76705; 76981; 80323

== ENCOUNTER 2023-04-01 13:58 | Outpatient (AMB) | payer OTHER, SELFPAY ==
[2023-04-01 13:58] VITALS: BMI 50.8
--- NOTE | 2023-04-01 13:58 | MHC.OFFVISWM ---
Intake VS Expanded 04/01/23 13:58 Height 5 ft 3 in Weight 287 lb BMI 50.8 Intake Visit Reasons: Tele health SWL Intake Note: Pt stated weight from home scale Allergies No Known Allergies [No Known Allergies*] Allergy (Verified 04/01/23 13:59) HPI HPI Comments History of Present Illness Details Telehealth Location of provider rendering services: practice address Location of patient: address on file Patient Identification confirmed using: Name, : Yes Telehealth method: phone Patient verbally consented to treatment: Yes Patient verbally consented to billing insurance company: Yes Patient informed of any privacy concerns related to visit: Yes The patient has quit nicotine completely over a month ago on is congratulated. She purchased the body composition scale and reports a weight of 286 lb/BMI 50.8 for today's visit which is 2 lb loss since televisit. control method: Mirena IUD VIVIENNE:3 ESS:9 GERD: 4: QOL:91 Pt called at [phone] The patient had entered the surgical weight loss program a year ago, dropped out due to conflicts with family and work. She originally contacted the office requesting Orbera balloon, but given her ongoing smoking and research, she realized that this was not advisable and is interested in nicotine cessation & sleeve gastrectomy. She is continuing to use Mirena for control and is not interested in having more children at this point. Past surgical history includes . She notes that she is at the heaviest of her adult life at 303 lbs/BMI 53.7. She reports a weight today 03/14/23 of 286 lbs representing a 17 lb weight loss since she 1st re-enter the surgical weight loss program. Goal weight: 270 lb/30 lb weight loss, more if hepatomegaly mandates We reviewed her abdominal ultrasound results which demonstrated significant hepatosplenomegaly and that likely, greater than 30 lb of weight loss and possible repeat abdominal ultrasound to assess progress may be required. Preop work-up SWL classes BH cleared RD cleared Labs low Vit D H. pylori Neg EKG NSR CXR NAD Abd U/S +HSM R 17.9/L 16.9, no gallstones, shear 1.4 UGI P 04/09/23 The patient understands that she will need to repeat previously done labs and studies and has requested a virtual/telehealth whenever possible. Meal plan: Celebrate Rebuild 1.5 scoop in 10-12 oz unsweetened almond milk Noon: Celebrate Rebuild protein shake 1.5 scoop in 10-12 oz unsweetened almond milk 14:00 snack: Serving of low-fat cottage cheese or Kazakh yogurt or protein bar (pt couldn't remember name) Dinner: 12 forks of protein with 12 forks of green vegetables Exercise: She is currently using a home treadmill 2 days a week for 30 minutes for 300 kcal (takes 40') & 20' exercise videos 4 x/week Joined gym 30' walking on treadmill 3x/week 300 kcal/50' [facility] Medical History Encounter for insertion of mirena IUD Surgical History H/O section Social History Alcohol intake: current Alcohol intake frequency: a few times a week Tobacco use type: Cigarette Cigarettes Per Day: 2 Review of Systems Const All systems reviewed & are unremarkable except as noted in HPI and below Reports as per HPI Physical Exam Vital Signs: BMI result Body Mass Index 50.8 Results Reviewed Results Reviewed: Urine nicotine is pending. Please note that the patient quit smoking in early December Hb 14.0 N/N Fe WNL; Plts 254K, wbc 9.4 Vit D low--pt to take OTC supp MVI o/w pending TAGs 199, Chol 196 Hb A1C 5.2 TSH 2.20 BUN 11/Cr 0.80 H pylori neg CXR NAD Abd U/S HSM R 17.9/ L 16.9, NAFLD, no gallstones UGI pending 04/09/23 Assessment & Plan Assessment & Plan (1) Morbid obesity: Code(s): E66.01 - Morbid (severe) obesity due to excess calories (2) Asthma: Code(s): J45.909 - Unspecified asthma, uncomplicated (3) Nicotine use: Code(s): Z72.0 - Tobacco use (4) Adjustment reaction with anxiety and depression: Code(s): F43.23 - Adjustment disorder with mixed anxiety and depressed mood Plan The patient is congratulated on interval weight loss. She has joined a gym and is now increased her activity and trending energy expenditure of 300 kcal per 3 days a week. Recommended increasing to 4 and continuing home exercises. No changes were made to the meal plan since she is doing well with celebrate jorden christianson. Initial goal of 30 lb weight loss was discussed and the possible need for more given her significant hepatosplenomegaly was discussed. Options for follow-up and my absence over the next months was disclosed to the patient and she would like to reestablish contact with Jayla Snyder who she saw in 2021. Total of 26 minutes were spent reviewing records, coordinating care and time on the phone with the patient. Telehealth Telehealth Location of provider rendering services: practice address Location of patient: address on file Patient Identification confirmed using: Name, : Yes Telehealth method: voice only Patient verbally consented to treatment: Yes Patient verbally consented to billing insurance company: Yes Patient informed of any privacy concerns related to visit: Yes Minutes spent on Phone/Video with Pt.: 18 Coding Level of Care Code Tele New Pt Level 4 (26223) Diagnoses Morbid obesity E66.01 Asthma J45.909 Nicotine use Z72.0 Adjustment reaction with anxiety and depression F43.23
== END 2023-04-01 15:12 | disposition home or self-care (01) ==
LOC: HO.HBS 13:58
PROVIDERS: Visit Provider Surgery
DX: E66.01 Morbid (severe) obesity due to excess calories (principal); Z68.43 Body mass index [BMI] 50.0-59.9, adult; F43.23 Adjustment disorder with mixed anxiety and depressed mood; F17.210 Nicotine dependence, cigarettes, uncomplicated
CPT/HCPCS: 99213

== ENCOUNTER → 2023-04-01 13:58 | Outpatient (BNVA) | payer OTHER, SELFPAY | PROVIDERS: Visit Provider Surgery ==

== ENCOUNTER 2023-04-23 15:30 | Outpatient (AMB) | payer OTHER, SELFPAY ==
--- NOTE | 2023-04-23 12:16 | MHC.OFFVISWM ---
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 She has been having pre op appointments with Dr Stark up until today and became frustrated with her process. Meal plan: wakes at 7:30 - 1 am. 8am - Premier or Equate RTD shakes, switched ot Premier powder 11 am - shake 1pm - cottage cheese or yogurt or 1 string cheese 4pm - small bowl salad (vegetables, grilled chicken or egg and ham) - eats half 7pm - 12 forks each protein and vegetable Exercise - now has gym membership. Gym - 3 times in 2 weeks - treadmill - 2.5- -3.0, incline -1-3, 45 minutes singh almost 300 calories. Then bicyclee for 30 minutes. 3d/ week - 200 calories 20 minute workouts. SW classes BH cleared RD cleared Labs- redone 03/12, low Vit D, B1 and B12, elevated TRG and LDL (but improving) H. pylori Neg EKG NSR - Feb 2023 CXR NAD - Feb 2023 Abd U/S +HSM R 17.9/L 16.9, no gallstones, shear 1.4 UGI - 04/09/23 - needs to be rescheduled Exercise: She is currently using a home treadmill 2 days a week for 30 minutes for 300 kcal (takes 40') & 20' exercise videos 4 x/week Joined gym 30' walking on treadmill 3x/week 300 kcal/50' [facility] Medical History Encounter for insertion of mirena IUD Surgical History H/O section Social History Alcohol intake: current Alcohol intake frequency: a few times a week Tobacco use type: Cigarette Cigarettes Per Day: 2 Assessment & Plan Assessment & Plan (1) Morbid obesity: Code(s): E66.01 - Morbid (severe) obesity due to excess calories Plan: Pt has lsot about 5% and will now have her UGI rescheduled and finish pre op work up. We discussed the significance of her hepatomegaly and that the more weight she loses pre op the better it will be for her. Meal plan changes: 9am - 30 grams -powdered shake 12 pm - 30 gram shake 3 -4 pm- cottage or yogurt 7pm - 12 forks each Exercise -5 d/week - doesn't like to go to gym alone - has childcare issues on weekends, has treadmill at home. Gym every other weekend, alternate with treadmill at home, 2 , , Friday. treadmill - speed 3.0, incline 2 -7, every 3 minutes. -10 jordyn /minute - 400 calories. [place] [facility] program. Will now text me her weights weekly, next appt in 3 weeks with me. UGI --- Patient is still morbidly obese and is not considered stable at this time. I spent 30 minutes in total speaking with the patient via video conference counseling , reviewing records and charting in patients chart. . Telehealth Telehealth Location of provider rendering services: practice address Location of patient: address on file Patient Identification confirmed using: Name, : Yes Telehealth method: video Patient verbally consented to treatment: Yes Patient verbally consented to billing insurance company: Yes Patient informed of any privacy concerns related to visit: Yes Coding Level of Care Code Tele Est Pt Level 4 (00073) Diagnoses Morbid obesity E66.01
[2023-04-23 15:46] VITALS: BMI 50.8
== END 2023-04-23 16:13 | disposition home or self-care (01) ==
LOC: HO.HBS 16:11
PROVIDERS: Visit Provider Physician Assistant
DX: E66.01 Morbid (severe) obesity due to excess calories (principal)
CPT/HCPCS: 99214

== ENCOUNTER → 2023-04-23 15:30 | Outpatient (BNVA) | payer OTHER, SELFPAY | PROVIDERS: Visit Provider Physician Assistant ==

== ENCOUNTER → 2023-05-29 16:27 | Outpatient (BNVA) | payer OTHER, SELFPAY | PROVIDERS: Visit Provider Physician Assistant | DX: E66.01 Morbid (severe) obesity due to excess calories (principal) ==

== ENCOUNTER 2023-05-30 13:00 | Outpatient (AMB) | payer OTHER, SELFPAY ==
--- NOTE | 2023-05-30 12:58 | A.OFFVIS_ITS ---
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 Has not been able to sleep enough and find time to work out with her busy life. SWL classes BH cleared RD cleared Labs- redone 03/12, low Vit D, B1 and B12, elevated TRG and LDL (but improving) H. pylori Neg EKG NSR - Feb 2023 CXR NAD - Feb 2023 Abd U/S +HSM R 17.9/L 16.9, no gallstones, shear 1.4 UGI - 04/09/23 - now 06/05/23 Meal plan: 9am - 30 grams -powdered shake Rebuild 12 pm - 30 gram shake - misses this gretchen e most days 3 -4 pm- cottage or yogurt 7pm - 12 forks protein and 16 forks Exercise -2 d/week - 45 minutes on treadmill - 300 calories, then bike 40 - 50 calories over 15 minutes. [facility] Medical History Encounter for insertion of mirena IUD Surgical History H/O section Social History Alcohol intake: current Alcohol intake frequency: a few times a week Tobacco use type: Cigarette Cigarettes Per Day: 2 Assessment & Plan Assessment & Plan (1) Morbid obesity: Code(s): E66.01 - Morbid (severe) obesity due to excess calories Plan: Pre op work up will be complete on 06/05 wtih UGI, needs to lose another 10 lbs to be ready for surgery. Sleeps 5 hours/night only. We discussed melatonin and good sleep hygiene practices. Wakes at 6:30 am - bed at 12 - 1 am. Meal plan - stop skipping afternoon shake, measures food in forkfuls Exercise - MUST find time to use treadmill for 400 calories 5d/week. Will talk with her about finding time. Text me weekly, next appt in 3 weeks with me. Patient is still morbidly obese and is not considered stable at this time. I spent 30 minutes in total speaking with the patient via video conference counseling , reviewing records and charting in patients chart. . Telehealth Telehealth Location of provider rendering services: practice address Location of patient: address on file Patient Identification confirmed using: Name, : Yes Telehealth method: voice only Patient verbally consented to treatment: Yes Patient verbally consented to billing insurance company: Yes Patient informed of any privacy concerns related to visit: Yes Coding Level of Care Code Tele Est Pt Level 4 (89007) Diagnoses Morbid obesity E66.01
[2023-05-30 13:01] VITALS: BMI 50.2
== END 2023-05-30 13:34 | disposition home or self-care (01) ==
LOC: HO.HBS 13:01
PROVIDERS: Visit Provider Physician Assistant
DX: E66.01 Morbid (severe) obesity due to excess calories (principal)
CPT/HCPCS: 99214

== ENCOUNTER → 2023-05-30 13:00 | Outpatient (BNVA) | payer OTHER, SELFPAY | PROVIDERS: Visit Provider Physician Assistant | DX: E66.01 Morbid (severe) obesity due to excess calories (principal) ==

== ENCOUNTER 2023-06-05 09:25 | Outpatient (REF) | payer OTHER, SELFPAY ==
--- NOTE | ~2023-06-05 | FL_ITS ---
EXAMINATION: XR FLUOROSCOPY UPPER GI WITH AIR CLINICAL INFORMATION: Morbid obesity due to excess calories. Patient complains of occasional dyspepsia . COMPARISON: None TECHNIQUE: Fluoroscopic air contrast upper GI examination was performed utilizing standard techniques with thin and thick barium and effervescent granules. Numerous spot images were obtained. Several fluoroscopic image hold cine sequences were also obtained. FINDINGS: Lateral cine images of the oropharynx and hypopharynx demonstrate normal swallow mechanism with normal epiglottic inversion and soft palate elevation. No tracheal penetration, glottic or subglottic aspiration identified. No nasopharyngeal reflux present. Hypopharyngeal structures appear normal without evidence of mass or diverticulum. There was no significant cricopharyngeal achalasia. Dual and single contrast images of the esophagus demonstrate normal caliber, contour, and mucosal pattern. No evidence of stricture, mass, or ulcerations identified. Esophageal peristalsis was normal. Small type I hiatus hernia present. Minimal gastroesophageal reflux noted to the level of the nat[place]. Dual contrast and single contrast images of the stomach demonstrated diffusely mildly thickened rugal folds, possibly suggesting underlying gastritis. No ulcerations or masses. Normal contour. Contrast freely passed into the gastric antrum and duodenal bulb without delay. Single and air-contrast images of the duodenal bulb demonstrate no abnormality. Mildly thickened folds are noted in the most proximal duodenum, suggesting duodenitis. The more distal duodenum and the imaged proximal jejunum has a normal fold pattern and caliber. No evidence of malrotation. FLUOROSCOPY TIME: 3 minutes 40 seconds Number of Spot Images: 8 Number of cines obtained: 12 DOSE AREA PRODUCT: [id number] uGy-m2 (microgray-meter squared) FL/FL upper GI w air IMPRESSION: 1. Small type I hiatus hernia. 2. Minimal gastroesophageal reflux. 3. Diffusely thickened rugal folds of the stomach suggesting gastritis. Suggest correlating with EGD. 4. Mildly thickened folds in the proximal duodenum, possibly suggesting underlying proximal duodenal inflammation. 5. Remainder of the examination is normal.
== END 2023-06-05 09:26 | disposition home or self-care (01) ==
LOC: HO.XRAY 09:25
PROVIDERS: Visit Provider Surgery
DX: E66.01 Morbid (severe) obesity due to excess calories (principal); J45.909 Unspecified asthma, uncomplicated; F43.23 Adjustment disorder with mixed anxiety and depressed mood
CPT/HCPCS: 74246

== ENCOUNTER → 2023-06-05 09:27 | Outpatient (BNV) | payer OTHER, SELFPAY | PROVIDERS: Visit Provider Radiology Diagnostic Radiology | DX: K30 Functional dyspepsia (principal); E66.01 Morbid (severe) obesity due to excess calories | CPT/HCPCS: 74246 ==

== ENCOUNTER 2024-06-03 19:53 | Emergency (ER) | payer OTHER, SELFPAY ==
--- NOTE | ~2024-06-03 | US_ITS ---
CLINICAL HISTORY: swelling pain Venous duplex ultrasound right lower extremity Comparison: None Findings: The visualized deep veins are fully compressible with normal Doppler color flow and spectral tracings. No popliteal cyst. mildly enlarged lymph node in the right inguinal region measuring up to 2.8 cm in greatest diameter. Varicose vein seen right calf IMPRESSION: 1. Negative for right lower extremity deep vein thrombosis. This document has been electronically signed by: Marc Marquez MD on 06/03/2024 21:42:41
--- NOTE | ~2024-06-03 | XR_ITS ---
CLINICAL HISTORY: HTN 1 view chest x-ray Comparison: CR/SR - XR CHEST 2V - 03/12/23 15:19 EST Findings: The lungs are clear. Normal size heart. No acute fracture. IMPRESSION: 1. No acute findings. This document has been electronically signed by: Marc Marquez MD on 06/03/2024 22:27:18
[2024-06-03 20:03] VITALS: BP 139/83; PULSE 122; RESP 18; TEMP 36.2; O2SAT 98; BMI 55.7
--- NOTE | 2024-06-03 20:07 | ECG_ITS ---
Test Reason : TACHYCARDIA Blood Pressure : */* mmHG Vent. Rate : 129 BPM Atrial Rate : 129 BPM P-R Int : 148 ms QRS Dur : 90 ms QT Int : 300 ms P-R-T Axes : 52 26 38 degrees QTcB Int : 439 ms Sinus tachycardia Otherwise normal ECG When compared with ECG of 12-Mar-2023 14:15, Vent. rate has increased by 52 bpm Referred By: Rianna Martínez Electronically Signed By: Rodriguez Zhang
--- NOTE | 2024-06-03 20:11 | ED.LOWEXIN ---
HPI - Extremity Injury (Lower) General Chief Complaint: Extremity Injury, Lower Stated Complaint: right lower leg red/swollen/painful Time Seen by Provider: 06/04/24 02:10 Source: patient Mode of arrival: ambulatory Limitations: no limitations History of Present Illness ED Provider: HPI Narrative: Patient obese comes here with right leg cellulitis which is going on for last 2 weeks patient took cephalexin for 1 week got better again for last 4 days noticed recurrence of the redness and pain patient had ultrasound done negative for DVT no fever no chills no open wounds Related Data Previous Rx's ?Medication ?Instructions ?Recorded cefuroxime axetil 500 mg tablet 500 mg PO BID 10 days #20 tabs 06/04/24 doxycycline hyclate 100 mg tablet 100 mg PO BID #20 tabs 06/04/24 Allergies Allergy/AdvReac Type Severity Reaction Status Date / Time No Known Allergies Allergy Verified 06/03/24 20:05 [No Known Allergies*] Review of Systems Review of Systems: Yes all other systems are reviewed and are negative PMFSH Past Medical History Medical History Encounter for insertion of mirena IUD Surgical History H/O section Social History Social History Alcohol intake: current Alcohol intake frequency: a few times a week Tobacco use type: Cigarette Cigarettes Per Day: 2 Advance Directives: No Advance Directives Information Provided: Yes Do you have a plan to hurt others: No Plan Physical Exam Vital Signs: Vital Signs: Last Vital Signs Temp 98 F 06/04/24 03:12 Pulse 101 H 06/04/24 03:12 Resp 18 06/04/24 03:12 BP 137/68 06/04/24 03:12 Pulse Ox 97 06/04/24 03:12 O2 Del Method Room Air 06/03/24 20:03 BMI result Body Mass Index 55.7 Appearance: Alert. Oriented X3. No acute distress. Eyes: No pallor or icterus ENT: Pharynx normal. Oral Mucosa moist Neck: Normal inspection. Neck supple. CVS: Normal heart rate and rhythm. Pulses normal. Respiratory: No respiratory distress. Equal air entry bilateral, no wheezing/rales/rhonchi Abdomen: Soft and nontender. Bowel sounds are present, no mass palpable, no CVA tenderness Skin: Skin warm and dry. Cellulitic change right lower extremity over the crowell Normal skin turgor. Extremities: r leg2+ lower extremity edema with redness and tenderness in the crowell area. No calf tenderness Neuro: Oriented X 3. No motor deficit. No sensory deficit.No cerebellar signs , cranial nerves II-XII intact Course Course Course Narrative: This is a rapid medical exam performed by Rianna Martínez PA-C. The patient is a 34-year-old female who is morbidly obese, with recurrent cellulitis of the right lower extremity, presents with acute swelling and pain of the right lower extremity x1 day. Patient states she just completed a course of antibiotics last week for cellulitis. Over the past day, her symptoms have returned. The lower extremity is extremely swollen. Denies fever. On exam, the right lower extremities objectively more swollen and edematous versus the left, there is overlying erythema that is circumferential superior to the ankle. We will be obtaining basic labs, inflammatory markers, trop BNP EKG chest x-ray, as she was tachycardic and hypertensive, and an ultrasound of the right lower extremity. The patient is stable and can return to the waiting room pending her full medical assessment. Medications Administered Discontinued Medications Generic Name Dose Route Start Last Admin Trade Name Freq PRN Reason Stop Dose Admin Cefuroxime Axetil 500 mg 06/04/24 02:43 06/04/24 03:07 Cefuroxime Axetil 500 Mg Tablet PO 06/04/24 02:44 500 mg ONCE ONE Administration Doxycycline Monohydrate 100 mg 06/04/24 02:43 06/04/24 03:07 Doxycycline Monohydrate 100 Mg Capsule PO 06/04/24 02:44 100 mg ONCE ONE Administration Medical Decision Making Medical Decision Making [facility] Narrative: Patient has cellulitis of the right leg will prescribe outpatient doxycycline and cefuroxime advised to come back to the ER if does not get better Differential Diagnosis Differential Diagnoses: The differential diagnosis associated with the presentation includes DVT/cellulitis Lab Data [facility] Lab Attestation statement: I reviewed the patient's lab results. 06/03/24 20:39 06/03/24 20:39 Labs: Lab Results 06/03/24 Range/Units 20:39 WBC 15.2 H (4.8-10.8) X10*3/uL RBC 4.08 L (4.20-5.50) X10*6/uL Hgb 13.4 (12.0-16.0) g/dl Hct 38.1 (37.0-47.0) % MCV 93.4 (80.0-98.0) fL MCH 32.8 (27.0-33.0) pg MCHC 35.2 H (31.0-35.0) g/dl RDW 12.6 (11.0-16.0) % Plt Count 278 (160-400) X10*3/uL MPV 9.7 (9.4-12.3) fL Immature Gran % (Auto) 0.5 H (0.0-0.4) % Neut % (Auto) 73.1 H (45-73) % Lymph % (Auto) 18.0 L (20-40) % Miller % (Auto) 7.0 (2-11) % Eos % (Auto) 1.1 (0-4) % Baso % (Auto) 0.3 (0-2) % Lymph # (Auto) 2.7 (1.2-4.9) X10*3/uL Miller # (Auto) 1.1 (0.1-1.2) X10*3/uL Eos # (Auto) 0.2 (0.0-0.4) X10*3/uL Baso # (Auto) 0.0 (0.0-0.2) X10*3/uL Abs Immat Gran (auto) 0.08 H (0.00-0.03) X10*3/uL Absolute Neuts (auto) 11.1 H (2.0-8.3) x10*3/uL Absolute Nucleated RBC 0.000 (0.0-0.012) X10*3/uL Nucleated RBC % (auto) 0.0 (0.0-0.2) /100WBC ESR 14 (0-20) MM/HR Sodium 138 (135-145) mmol/L Potassium 3.8 (3.3-5.1) mmol/L Chloride 103 (96-108) mmol/L Carbon Dioxide 25 (22-29) mmol/L Anion Gap 14 (12-20) BUN 12 (9-16) mg/dL Creatinine 0.77 (0.5-1.4) mg/dL Estim Creat Clear Calc 138.6 Estimated GFR > 60 Random Glucose 145 H (60-115) mg/dL Calcium 9.5 (8.4-10.2) mg/dL Magnesium 1.6 (1.6-2.6) mg/dL Troponin I High Sens < 2.7 (<3.5-17.0) ng/L C-Reactive Protein 2.44 H (< or = 0.50) mg/dL B-Natriuretic Peptide < 10 (<100) pg/mL Beta HCG, Quant < 2 mIU/mL Independent Interpretation I performed an independent interpretation of an: Ultrasound Interpretation: No DVT Radiology Impression Discussion of test interpretation with radiology: I have reviewed the radiologist's reading. Discharge Plan Discharge Clinical Impression: Cellulitis of leg Patient Disposition: Home, Self-Care Instructions: Cellulitis (ED) Additional Instructions: Keep your right leg elevated Take antibiotic as prescribed Report to the ER/PCP if worsening of the rash/fever Prescriptions: New cefuroxime axetil 500 mg tablet 500 mg PO BID 10 Days Qty: 20 0RF doxycycline hyclate 100 mg tablet 100 mg PO BID Qty: 20 0RF Interventions: ED Discharge Assessment Last Done: 06/04/24 03:12 Discharge Date/Time: 06/04/24 03:12 Print Language: Mozambican
[2024-06-03 22:21] LABS: Basophils Percent Auto 0.3 % (0-2); Eosinophils Absolute Auto 0.2 X10*3/uL (0.0-0.4); Eosinophils Percent Auto 1.1 % (0-4); Hematocrit 38.1 % (37.0-47.0); Hemoglobin 13.4 g/dl (12.0-16.0); Imm Gran Abs Auto 0.08 X10*3/uL (0.00-0.03); Imm Gran Pct Auto 0.5 % (0.0-0.4); Lymphocytes Absolute Auto 2.7 X10*3/uL (1.2-4.9); MANUAL DIFF FLAG NO; Mean Corpuscular HGB Conc 35.2 g/dl (31.0-35.0); Mean Corpuscular Hemoglobin 32.8 pg (27.0-33.0); Mean Corpuscular Volume 93.4 fL (80.0-98.0); Mean Platelet Volume 9.7 fL (9.4-12.3); Monocytes Absolute Auto 1.1 X10*3/uL (0.1-1.2); Neutrophils Absolute Auto 11.1 x10*3/uL (2.0-8.3); Neutrophils Percent Auto 73.1 % (45-73); Platelet Count 278 X10*3/uL (160-400); Red Blood Count 4.08 X10*6/uL (4.20-5.50); Red Cell Distribution Width 12.6 % (11.0-16.0); White Blood Count 15.2 X10*3/uL (4.8-10.8)
[2024-06-03 22:56] LABS: Erythrocyte Sedimentation Rate 14 MM/HR (0-20)
[2024-06-03 23:05] LABS: Anion Gap 14 (12-20); Blood Urea Nitrogen 12 mg/dL (9-16); C Reactive Protein 2.44 mg/dL (< or = 0.50); Calcium 9.5 mg/dL (8.4-10.2); Carbon Dioxide 25 mmol/L (22-29); Chloride 103 mmol/L (96-108); Creatinine Clr Calc Pharmacy 138.6; Estimated Glomerular Filt Rate > 60; Glucose Random 145 mg/dL (60-115); Magnesium 1.6 mg/dL (1.6-2.6); Potassium 3.8 mmol/L (3.3-5.1); Sodium 138 mmol/L (135-145)
[2024-06-03 23:08] LABS: HCG Quantitative < 2 mIU/mL
[2024-06-03 23:09] LABS: Troponin-I High Sensitivity < 2.7 ng/L (<3.5-17.0)
[2024-06-03 23:10] LABS: B Type Natriuretic Peptide < 10 pg/mL (<100)
[2024-06-04 01:32] VITALS: PULSE 101; RESP 18
[2024-06-04] MEDS: cefuroxime axetiL 500 MG TABLET PO (03:07)
[2024-06-04] MEDS: Doxycycline Monohydrate 100 MG CAPSULE PO (03:07)
[2024-06-04 03:12] VITALS: BP 137/68; PULSE 101; RESP 18; TEMP 36.6; O2SAT 97
== END 2024-06-04 03:12 | disposition home or self-care (01) ==
PROVIDERS: Emergency Provider Internal Medicine
DX: L03.115 Cellulitis of right lower limb (principal); R00.0 Tachycardia, unspecified; E66.01 Morbid (severe) obesity due to excess calories; R60.0 Localized edema; F17.210 Nicotine dependence, cigarettes, uncomplicated; Z68.43 Body mass index [BMI] 50.0-59.9, adult
CPT/HCPCS: 36415; 71045; 80048; 83735; 83880; 84484; 84702; 85025; 85652; 86140; 93005; 93971; 99284

== ENCOUNTER → 2024-06-03 20:07 | Outpatient (BNV) | payer OTHER, SELFPAY | PROVIDERS: Emergency Provider Internal Medicine; Visit Provider Internal Medicine Cardiovascular Disease | DX: R00.0 Tachycardia, unspecified (principal) | CPT/HCPCS: 93010 ==

== ENCOUNTER → 2024-06-03 20:09 | Outpatient (BNV) | payer OTHER, SELFPAY | PROVIDERS: Visit Provider Radiology Diagnostic Radiology | DX: R00.0 Tachycardia, unspecified (principal) | CPT/HCPCS: 71045 ==